=== PATIENT | male | born 1970 | race Caucasian/White ===

== ENCOUNTER 2017-03-07 08:30 | Emergency (ER) | payer OTHER | END 2017-03-07 12:41 | disposition home or self-care (01) | LOC: ER1 08:30 | DX: S51.012A Laceration without foreign body of left elbow, initial encounter (principal); S20.212A Contusion of left front wall of thorax, initial encounter; W01.0XXA Fall on same level from slipping, tripping and stumbling without subsequent striking against object, initial encounter | CPT/HCPCS: 12031; 71250; 90471; 90714; 99283 ==

== ENCOUNTER 2017-03-18 10:59 | Emergency (ER) | payer SELFPAY | END 2017-03-18 11:45 | disposition home or self-care (01) | LOC: ER1 10:59 | DX: S51.012D Laceration without foreign body of left elbow, subsequent encounter (principal); X58.XXXD Exposure to other specified factors, subsequent encounter | CPT/HCPCS: 99281 ==

== ENCOUNTER 2021-11-19 14:48 | Emergency (ER) | payer BC ==
[~2021-11-19] VITALS: Ht 182.9 cm; Wt 226.8 kg
[~2021-11-19 14:48] MED LIST: FLEXERIL 10 MG10 MG PO; Voltaren Gel 1 % TOP
[2021-11-19 16:09] LABS: HEMOGLOBIN 12.7 gm/dl (14.0-17.5); RED BLOOD COUNT 4.26 M/UL (4.20-5.50); WHITE BLOOD COUNT 4.4 K/UL (4.5-11.0)
[2021-11-19 17:01] LABS: BUN/CREATININE RATIO 10 (0-10)
[2021-11-19] MEDS ORDERED: AZITHROMYCIN250 MG PO (18:45)
[2021-11-19] MEDS ORDERED: DECADRON6 MG PO (18:45)
== END 2021-11-19 19:45 | disposition home or self-care (01) ==
LOC: ER1 14:48
PROVIDERS: Physician Assistant
DX: U07.1 COVID-19 (principal); Z23 Encounter for immunization; J12.82 Pneumonia due to coronavirus disease 2019; S81.801A Unspecified open wound, right lower leg, initial encounter; E66.01 Morbid (severe) obesity due to excess calories; G47.33 Obstructive sleep apnea (adult) (pediatric); F17.290 Nicotine dependence, other tobacco product, uncomplicated
CPT/HCPCS: 36600; 71045; 80053; 82550; 82553; 82803; 83605; 83874; 83880; 84484; 85025; 87040; 93005; 96374; 99285; M0245; U0002